=== PATIENT | male | born 1980 | race Caucasian/White ===

== ENCOUNTER 2024-04-16 08:12 | Inpatient (IN) ==
[2024-04-16] MEDS ORDERED: HYDROmorphone 0.5 MG/0.5 ML SYRINGE ONE (08:55)
[2024-04-16] MEDS ORDERED: KETOROLAC 15 MG/ML VIAL ONE (08:55)
[2024-04-16] MEDS ORDERED: ONDANSETRON 4 MG/2 ML VIAL ONE ×2 (08:55→15:05)
[2024-04-16] MEDS ORDERED: iohexoL-300 100 ML VIAL ONE (09:45)
[2024-04-16] MEDS ORDERED: levoFLOXacin 750 MG/150 ML 750 MG/150 ML BAG IV ONE (11:48)
[2024-04-16] MEDS ORDERED: metroNIDAZOLE 500 MG/100 ML 500 MG/100 ML BAG ONE (13:47)
[2024-04-16] MEDS ORDERED: BUPIVACAINE 0.25% PF 10 ML VIAL ONE (13:47)
[2024-04-16] MEDS ORDERED: LIDOCAINE 1%-EPI 1:100000 20 ML MDV ONE (13:47)
[2024-04-16] MEDS ORDERED: cefTRIAXone 1 GM VIAL ONE (13:51)
[2024-04-16] MEDS ORDERED: LIDOCAINE-MPF 2% 5 ML VIAL ONE (14:22)
[2024-04-16] MEDS ORDERED: ROCURONIUM 50 MG/5 ML VIAL ONE (14:23)
[2024-04-16] MEDS ORDERED: PROPOFOL 200 MG/20 ML VIAL IVP ONE (14:23)
[2024-04-16] MEDS ORDERED: fentaNYL 100 MCG/2 ML VIAL ONE ×2 (14:23→16:01)
[2024-04-16] MEDS ORDERED: MIDAZOLAM 2 MG/2 ML VIAL ONE (14:23)
[2024-04-16] MEDS ORDERED: DEXAMETHASONE 4 MG/ML VIAL ONE (15:05)
[2024-04-16] MEDS ORDERED: ACETAMINOPHEN 1,000 MG/100 ML 1,000 MG/100 ML BAG IV ONE (15:19)
[2024-04-16] MEDS ORDERED: KETOROLAC 30 MG/ML VIAL ONE (15:34)
[2024-04-16] MEDS ORDERED: SUGAMMADEX 200 MG/2 ML VIAL IVP ONE (15:51)
[2024-04-16] MEDS ORDERED: HYDROmorphone 2 MG/ML VIAL IVP PRN (17:10)
[2024-04-16] MEDS ORDERED: SODIUM CHLORIDE FLUSH 0.9% 10 ML SYRINGE IVP PRN (17:40)
[2024-04-16] MEDS: oxyCODONE 5 MG TABLET PO PRN (18:34)
--- NOTE | 2024-04-16 20:03 | CT Report ---
PROCEDURE: CT Abdomen/Pelvis W INDICATIONS: ABDOMINAL PAIN CONTRAST: OMNI 320 TECHNIQUE: After the administration of intravenous contrast, a CT scan of the abdomen and pelvis was performed. Images were recorded and evaluated at appropriate window settings. Reformats: coronal and sagittal. F or radiation dose reduction, the following was used: automated exposure control, adjustment of mA and /or kV according to patient size. COMPARISON: None. FINDINGS: Image quality: Diagnostic. Lower chest: Unremarkable. Liver: No solid mass. Gallbladder: No radiopaque stones or wall thickening. Biliary tree: No intrahepatic or extrahepatic dilation, accounting for age. Spleen: No splenomegaly. Pancreas: No pancreatic ductal dilation. Adrenals: No adrenal nodule. Kidneys and ureters: No hydronephrosis. No renal cystic lesion which requires follow up. No solid mas s. Stomach, bowel and peritoneum: The appendix is dilated, with a thickened wall. There is an obstructin g appendicolith at the base. No adjacent abscess or air. Lymph nodes: No central or retroperitoneal adenopathy. Vessels: No infrarenal aortic aneurysm. Patent portal vein. PELVIS Reproductive organs: Unremarkable. Bladder: No abnormal wall thickening, accounting for underdistention. Pelvic lymph nodes: No pelvic adenopathy by size criteria. Bones: No aggressive osseous abnormality. Other: No significant ventral or inguinal hernia. IMPRESSION: Acute uncomplicated appendicitis, caused by obstructing appendicolith at the base. Findings are concordant with preliminary interpretation provided by [facility]. Reviewed by: Tutu Vela MD on 04/16/2024 8:02 PM PDT Approved by: Tutu Vela MD on 04/16/2024 8:02 PM PDT Station ID: [id number]
[2024-04-16] MEDS: HYDROmorphone 0.5 MG/0.5 ML SYRINGE IVP PRN (20:29)
[2024-04-16] MEDS: LACTATED RINGERS 1,000 ML IV SCH (20:33)
[2024-04-16 21:00] LABS: BASOPHILS # (AUTO) 0.1 10^3/uL (0.0-0.1); BASOPHILS % (AUTO) 0.3 %; EOSINOPHILS % (AUTO) 0.1 %; HCT - HEMATOCRIT 48.7 % (42.0-52.0); HGB - HEMOGLOBIN 15.9 g/dL (14.0-18.0); LYMPHOCYTES # (AUTO) 1.5 10^3/uL (1.5-3.5); LYMPHOCYTES % (AUTO) 8.1 %; MEAN CORPUSCULAR HEMOGLOBIN 30.1 pg (27.0-31.0); MEAN CORPUSCULAR HGB CONC 32.6 g/dL (32.0-36.0); MEAN CORPUSCULAR VOLUME 92.1 fL (80.0-94.0); MEAN PLATELET VOLUME 10.1 fL (7.4-11.4); MONOCYTES # (AUTO) 1.5 10^3/uL (0.0-1.0); MONOCYTES % (AUTO) 8.1 %; NEUTROPHILS # (AUTO) 15.4 10^3/uL (1.5-6.6); NEUTROPHILS % (AUTO) 83.1 %; PLT - PLATELET COUNT 278 10^3/uL (130-450); RED BLOOD COUNT 5.29 10^6/uL (4.70-6.10); RED CELL DISTRIBUTION WIDTH 12.6 % (12.0-15.0); WHITE BLOOD COUNT 18.6 x10^3/uL (4.8-10.8)
[2024-04-16] MEDS ORDERED: HEPARIN 5,000 UNIT/ML VIAL SUBQ SCH (21:00)
[2024-04-16] MEDS: HEPARIN 5,000 UNIT/ML VIAL SUBQ SCH (21:00)
[2024-04-16 21:01] LABS: ALBUMIN 4.3 g/dL (3.2-5.5); ALBUMIN/GLOBULIN RATIO 1.2 (1.0-2.2); CALCIUM 9.4 mg/dL (8.5-10.3); CREATININE 0.7 mg/dL (0.6-1.3); POTASSIUM 4.1 mmol/L (3.5-4.5); TOTAL PROTEIN 7.8 g/dL (6.4-8.9)
[2024-04-16 21:02] LABS: BILIRUBIN,URINE SMALL (NEGATIVE); CLARITY,URINE CLEAR (CLEAR); GLUCOSE, URINE (UA) NEGATIVE (NEGATIVE); KETONES,URINE (UA) NEGATIVE (NEGATIVE); LEUKOCYTE ESTERASE, URINE NEGATIVE (NEGATIVE); NITRITE,URINE NEGATIVE (NEGATIVE); OCCULT BLOOD,URINE TRACE-INTA (NEGATIVE); PROTEIN,URINE NEGATIVE (NEGATIVE); UROBILINOGEN,URINE 0.2 (NORMAL) E.U./dL (NORMAL)
[2024-04-16] MEDS: KETOROLAC 30 MG/ML VIAL IVP SCH (23:37)
[2024-04-16] MEDS: SODIUM CHLORIDE FLUSH 0.9% 10 ML SYRINGE IVP SCH (23:39)
[2024-04-17 06:12] LABS: BASOPHILS % (AUTO) 0.2 %; HCT - HEMATOCRIT 39.2 % (42.0-52.0); LYMPHOCYTES # (AUTO) 1.6 10^3/uL (1.5-3.5); MEAN CORPUSCULAR HEMOGLOBIN 30.6 pg (27.0-31.0); MEAN CORPUSCULAR HGB CONC 33.2 g/dL (32.0-36.0); MEAN CORPUSCULAR VOLUME 92.2 fL (80.0-94.0); MEAN PLATELET VOLUME 10.3 fL (7.4-11.4); MONOCYTES # (AUTO) 1.5 10^3/uL (0.0-1.0); MONOCYTES % (AUTO) 9.1 %; NEUTROPHILS # (AUTO) 13.2 10^3/uL (1.5-6.6); NEUTROPHILS % (AUTO) 80.4 %; PLT - PLATELET COUNT 197 10^3/uL (130-450); RED BLOOD COUNT 4.25 10^6/uL (4.70-6.10); RED CELL DISTRIBUTION WIDTH 12.5 % (12.0-15.0); WHITE BLOOD COUNT 16.4 x10^3/uL (4.8-10.8)
[2024-04-17 06:24] LABS: CALCIUM 8.4 mg/dL (8.5-10.3); CREATININE 0.6 mg/dL (0.6-1.3); POTASSIUM 3.8 mmol/L (3.5-4.5)
--- NOTE | 2024-04-17 07:24 | PROVIDER PROGRESS NOTE ---
Progress Note Progress Note Progress Note: General Surgery Progress Note Hospital Day # 2 - Gangrenous appendicitis POD # 1, Laparoscopic appendectomy Code Status: Full ASSESSMENT: 1) Progressing well after his procedure. PLAN: 1) Increase diet 2) Ambulate 3) Continue IV antibiotics until WBC normalizes 4) IV to saline lock <><><><><> PERTINENT INTERVAL ISSUES: None S: Feels better; Minimal abdominal pain. Tolerating oral intake; Urinating well OBJECTIVE: VS: BP 114/68; P 74; RR 19; T 36.7 EXAMINATION: MENTAL STATUS: AAO; Comfortable EYES: Pupils equal, round and reactive to light, sclera anicteric, EARS, NOSE, MOUTH, THROAT: Normal hearing, Oral mucous membranes moist and without lesions; NECK: No crepitus, lymphadenopathy, or thyromegaly LUNGS: Clear to auscultation without wheezing; No use of accessory muscles to breathe CARDIOVASCULAR: Heart-NSR without murmurs; ABD: Soft, non-tender, Port sites clean and dry; + BS; Drain - scant/SS EXTREMITIES: No clubbing, cyanosis, infections SKIN: Anicteric; No rashes, lesions, ulcerations LABS: WBC 16.4; Hgb 13.0; Hct 39.2; Na 132; K 3.8; BUN 11; Cr 0.6 CULTURES: N/A IMAGING: None today ANTIMICROBIALS: Ceftriaxone/Flagyl PAIN CONTROL: ilaudid IV prn, Oxycodone PO prn, Ketorolac IV, Acetaminophen VTEP: Chemical: Heparin, 5,000 units SQ Q 12 hrs Mechanical: SCD
[2024-04-17] MEDS: ACETAMINOPHEN 325 MG TABLET PO SCH (08:56)
[2024-04-17] MEDS: cefTRIAXone 2 GM in SODIUM CHLORIDE 0.9% MINIBAG 100 ML IV SCH (08:59)
--- NOTE | 2024-04-17 11:32 | PHARMACY PROGRESS NOTE ---
Best Possible Medication History Admit Date and Time: 04/16/24 [id number] Processed by: Pharmacy (Medication Reconciliation completed by Data Processing MechanicCayden) Medications reviewed in ED?: No Medication History completed: Yes Patient Interview: Completed Secondary Source(s): Insurance records [facility] [place] Statement: As the person ultimately responsible for medication therapy, providers are able to order a medication from an existing home medication list in [facility] via the "Reconcile Routine" prior to Confirmation of that medication by application support engineer. Such practice is discouraged except when the physician, in their clinical judgment, deems that a medical need exists for a medication without regard to previous use.
[2024-04-18 05:51] LABS: BASOPHILS % (AUTO) 0.2 %; EOSINOPHILS % (AUTO) 0.2 %; HCT - HEMATOCRIT 38.9 % (42.0-52.0); HGB - HEMOGLOBIN 12.5 g/dL (14.0-18.0); LYMPHOCYTES # (AUTO) 1.6 10^3/uL (1.5-3.5); LYMPHOCYTES % (AUTO) 12.2 %; MEAN CORPUSCULAR HEMOGLOBIN 30.2 pg (27.0-31.0); MEAN CORPUSCULAR HGB CONC 32.1 g/dL (32.0-36.0); MEAN PLATELET VOLUME 10.1 fL (7.4-11.4); MONOCYTES % (AUTO) 8.2 %; NEUTROPHILS % (AUTO) 78.8 %; PLT - PLATELET COUNT 203 10^3/uL (130-450); RED BLOOD COUNT 4.14 10^6/uL (4.70-6.10); RED CELL DISTRIBUTION WIDTH 12.5 % (12.0-15.0); WHITE BLOOD COUNT 12.7 x10^3/uL (4.8-10.8)
[2024-04-18 06:08] LABS: CREATININE 0.5 mg/dL (0.6-1.3)
[2024-04-18 07:07] LABS: CALCIUM 8.6 mg/dL (8.5-10.3); POTASSIUM 3.6 mmol/L (3.5-4.5)
--- NOTE | 2024-04-18 07:19 | PROVIDER PROGRESS NOTE ---
Progress Note Progress Note Progress Note: General Surgery Progress Note POD # 2 - Lap appy for ruptured appendicitis S: Feels much better; Pre-op pain gone. Port site discomfort well controlled with oral meds. Ambulatory; Tolerating a diet; Passing flatus but no BM yet O: VSS, Afeb; AAO; In NAD; Lungs clear; Heart NSR; Abd - port sites clean and dry, soft, not distended, active BS, RLQ drain with scant serosanguinous fluid - removed by me today WBC 12.7 (improved); Hgb 12.5; K 3.6; Cr 0.5; Glu 98 A: Progressing well after appendectomy for ruptured appendicitis P: Continue IV antibiotics until tomorrow; Laxatives today Lang Rojas MD, FACS General Surgery Service
--- NOTE | 2024-04-18 16:51 | PROVIDER PROGRESS NOTE ---
Progress Note Progress Note Progress Note: General Surgery Progress Note S: Doing well. Had a BM today. Appetite not great. Abdominal pain nearly gone O: Abdomen is soft, not distended, not tender. Port sites clean A: Progressing well. Leukocytosis improved but I want him on a third day of IV antibiotics due to the ruptured and gangrenous nature of the appendix P: Continue as ordered. Likely home tomorrow Miles Rojas MD, FACS General Surgery Service
--- NOTE | 2024-04-19 07:39 | PROVIDER PROGRESS NOTE ---
Progress Note Progress Note Progress Note: General Surgery Progress Note POD # 3, Laparoscopic appendectomy for gangrenous appendicitis S: Feels good; Tolerating a general diet, ambulatory, passing stool and flatus from rectum. Minimal port site discomfort O: VSS, afeb, AAO, NAD, Lungs clear, Heart NSR, Abd soft, + BS, not distended, No port site drainage or bleeding A: Progressing well after surgery. P: Discharge to home on 4 days of oral Cipro/Flagyl; Off work until Monday, then RTW with limited duty restrictions; FU Surgery Clinic in 7-10 days or s ooner as needed Miles Rojas MD, FACS General Surgery Service
--- NOTE | 2024-04-19 07:44 | Discharge Summary ---
"Discharge Summary Admit Date: 04/16/24 Discharge Date: 04/19/24 Discharging Provider: Crystal Code Status: Attempt Resuscitation DIAGNOSES Admission Diagnoses: Acute, gangrenous appendicitis Discharge Diagnoses with Status of Each Condition: Acute, gangrenous appendicitis - resolved HPI History of Present Illness: 44 male admitted with [address] pain. [address] shows acute appendicitis. Significant leukocytosis present CONSULTS | PROCEDURES Procedures: 04/17/2024 - Laparoscopic appendectomy HOSPITAL COURSE Hospital Course: Uncomplicated. With IV antibiotics his leukocytosis was resolving at the time of discharge. On the day of discharge he was afebrile, ambulatory, tolerating a general diet, his port site discomfort was controlled with oral medication, and he was passing stool and flatus from the rectum. His RLQ drain was removed the day before discharge. ALLERGIES Allergies Allergy/AdvReac Type Severity Reaction Status Date / Time aspirin Allergy Unknown Verified 04/17/24 18:18 Penicillins Allergy Unknown Verified 04/17/24 18:18 MEDICATIONS Ambulatory Orders Medication Instructions Recorded Confirmed acetaminophen 325 mg tablet 650 mg (2 x 325 mg) PO Q6H #60 tabs 04/19/24 ciprofloxacin 250 mg/5 mL oral 500 mg (10 mL) PO BID #300 mL 04/19/24 suspension ibuprofen 600 mg tablet 600 mg PO TIDWM PRN pain 7 days 04/19/24 #28 tabs metronidazole 500 mg tablet 500 mg PO BID #12 tabs 04/19/24 oxycodone 5 mg tablet 5 mg PO Q4HR PRN Severe Pain 04/19/24 (Level 7-10) #5 tabs PHYSICAL EXAM AT DISCHARGE General Appearance: positive No acute distress and Alert Eyes Bilateral: positive Normal inspection and PERRL ENT: positive ENT inspection nml and Pharynx nml Neck: positive Nml inspection, Thyroid nml and Trachea midline Respiratory: positive Chest non-tender, No respiratory distress and Breath sounds nml Cardiovascular: positive Regular rate & rhythm and No murmur Peripheral Pulses: positive 2+ Abdomen: positive Non-tender, No organomegaly, Nml bowel sounds, No distention and Other (Port sites clean and dry) Skin: positive Color nml and No rash Extremities: positive Non-tender and Full ROM Neurologic/Psychiatric: positive Oriented x3 LABS 04/18/24 05:46 04/18/24 05:46 DIAGNOSTIC IMAGING Diagnostic Imaging Results: See rad report FOLLOW UP Follow Up: Follow up General Surgery Clinic in 7-10 days. TIME SPENT Time Spent in Discharge (Minutes): 30 Discharge Plan Discharge Patient Disposition: 01 Home, Self Care Condition: Good Prescriptions: New acetaminophen 325 mg Tablet 650 mg PO Q6H Qty: 60 0RF oxycodone 5 mg Tablet 5 mg PO Q4HR PRN (Reason: Severe Pain (Level 7-10)) Qty: 5 0RF ciprofloxacin 250 mg/5 mL suspension,microcapsule recon 500 mg PO BID Qty: 300 0RF metronidazole 500 mg tablet 500 mg PO BID Qty: 12 0RF ibuprofen 600 mg tablet 600 mg PO TIDWM PRN (Reason: pain) 7 Days Qty: 28 0RF Activity Restrictions: Activity as Tolerated Activity Restrictions/Additional Instructions: No heavy lifting for 2 weeks Off work through Apr 21, 2024. Limited duty from Apr 22, 2024 -May 06 2024 May shower over abdominal wounds. Leave white steri-strips in place until they fall off Diet: Regular Plan of Treatment: Follow-up in the General Surgery Clinic in 7-10 days. Our nursing staff will call you to make an appointment. If you have questions or concerns, call the clinic at Patient Instructions: Appendectomy Laparoscopic Dc"
[2024-04-19 08:48] VITALS: O2SAT 94
--- NOTE | 2024-04-30 16:54 | OPERATIVE REPORT ---
Operative Report General Admit Date: 04/16/24 Procedure Data: Operation Date: 04/16/24 14:30 Proposed Procedures p Laparoscopic Appendectomy(Not Applicable) - Miles Rojas MD Actual Procedures p Laparoscopic Appendectomy with LARRY bulb drain placement - Miles Rojas MD Pre-Op Diagnosis: R flank px acute appendicitis Anesthesia Type General Case Staff Anesthesia Provider: Deyvi Brandt Times Into Recovery: 04/16/24 16:15 Procedure Start: 04/16/24 14:56 Procedure End: 04/16/24 15:57 Time out: 04/16/24 14:55 Tourniquet Tourniquet #: Tourniquet Site Padding: Pressure: Applied by: Time up #1: Time Down #1: Time Up #2: Time Down #2: Other Other Information/Narrative: The original operative note created on the day of surgery (04/16/2024) was typed onto a paper document (since the electronic health record system was not fun ctioning at the time of dictation) and was supposed to be scanned into the Known EHR. I have checked daily and the scanned note has not yet appeared. This operative note is placed into this chart today (04/30/2024) to satisfy the documentation requirements, however, if the original note is eventually scanned into the EHR, it should be considered the more accurate document. Lang Rojas MD, FACS PROCEDURE DATE: 04/16/2024 PREOPERATIVE DIAGNOSIS: Koko is a 44 year old male who has clinical, CT, and laboratory findings consistent with acute appendicitis. Koko is being taken to the operating room for laparoscopic appendectomy, possible open appendectomy. POSTOPERATIVE DIAGNOSIS: Gangrenous, ruptured appendicitis with stella-appendiceal purulence NAME OF PROCEDURE: Laparoscopic appendectomy, drain placement SURGEON: Miles Rojas MD, FACS CHILD STUDY TEAM DIRECTOR: School Childcare Attendant ANESTHESIA: General endotracheal. ESTIMATED BLOOD LOSS: 10 mL. DRAINS: Chance channel drain SPECIMEN: Appendix in multiple pieced COMPLICATIONS None FINDINGS: The base of the appendix was normal. In it's mid-portion was an area of gangrene with rupture and a small amount of periappendiceal purulence. A discrete abscess cavity was not present. DESCRIPTION OF OPERATION: After consent for the procedure was obtained, the patient was brought to the operating room where in the supine position, general endotracheal anesthesia was administered. A surgical time-out was performed, indicating the patient and the procedure to be performed. The abdomen was prepped with alcohol-free chloroprep and draped in a sterile fashion. The subcutaneous tissue of each of the planned port sites was infiltrated with 1% Lidocaine with epinephrine in a 50/50 mix with 1/4 % Marcaine mixture. Pneumoperitoneum was achieved through a subumbilical incision using a Dorie cannula and an open technique. Under direct vision, a 5 mm muscle splitting, non-cutting port was placed in the right lower quadrant and an 12 mm muscle splitting, non-cutting port was placed in the left lower quadrant. Inspection revealed the above noted findings. Placing the patient in Trendelenburg position slightly rolled to the left allowed visualization of the appendix. The appendix was gently grasped with a ratcheted grasper and retracted superiorly and anteriorly. The distal portion of the appendix fragmented at the gangrenous section and was removed from the abdominal cavity using an endocatch device. I was then able to grasp the residual, relatively normal appearing proximal appendix and retract it superiorly and anteriorly. I then transected the mesoappendix with a harmonic scalpel and identified healthy tissue at the base of the appendix. The base of the appendix was stapled and transected flush with the cecum using an Endo-SASKIA stapling device using gastrointestinal lalita. The residual appendix was then brought out through the left lower quadrant port site incision using an EndoCatch device. Reinspection of the right lower quadrant revealed no evidence of bleeding or leakage from the previous dissection site. The right lower quadrant was irrigated with warm sterile saline. The irrigant was aspirated. A Chance channel drain was placed through the RLQ port site, secured to the skin with a 3-0 silk suture and oriented into the RLQ. A search was made for sponges, packs, instruments, and needles. None were found. The sponge, pack, instrument, and needle counts were relayed to me as being correct. The left lower quadrant port site was closed with a 2-0 Vicryl under direct vision using an endo-close device. The pneumoperitoneum then was released. There was no evidence of bleeding from the laparoscopic port sleeve sites upon release of the pneumoperitoneum. The subumbilical incision was closed with 2-0 Vicryl for the linea alba. The skin of each of the port sites was closed with interrupted 4-0 Vicryl in a subcuticular fashion with Steri-Strips to reinforce the epidermis. Dressings were placed. The patient tolerated the procedure well and was brought to the recovery room with stable vital signs.
== END 2024-04-19 09:56 | disposition home or self-care (01) | DRG 399 ==
LOC: ED 08:12 → SDS 13:00 → MS2 14:30
PROVIDERS: ADMIT Surgery; ATTEND Surgery
DX: K35.32 Acute appendicitis with perforation, localized peritonitis, and gangrene, without abscess